=== PATIENT | female | born 2000 | race Hispanic/Latino ===

== ENCOUNTER 2022-04-23 21:21 | Emergency (ER) | payer SELFPAY ==
[~2022-04-23] VITALS: Ht 167.6 cm; Wt 81.6 kg
[2022-04-23] MEDS ORDERED: DIPHENHYDRAMINE HCL 25 MG CAP PO STA (21:26)
[2022-04-23] MEDS ORDERED: METHYLPREDNISOLONE SOD SUCC 125 MG/2ML VIAL IM STA (21:26)
[2022-04-23] MEDS ORDERED: EPINEPHRINE HCL 1:1000 1ML 1 MG/ML AMP INJ STA (21:27)
[2022-04-23] MEDS ORDERED: VENTOLIN HFA18 GM INH (23:23)
[2022-04-23] MEDS ORDERED: PREDNISONE20 MG PO (23:23)
== END 2022-04-23 23:26 | disposition home or self-care (01) ==
LOC: EDBD 21:21 → ER 21:31
DX: R06.00 Dyspnea, unspecified (principal); R21 Rash and other nonspecific skin eruption
CPT/HCPCS: 36415; 70360; 71046; 82948; 93005; 99283; J0171; J2930